=== PATIENT | female | born 1985 | race Caucasian/White ===

== ENCOUNTER 2017-02-09 22:52 | Emergency (ER) | payer SELFPAY ==
[2017-02-09 23:44] LABS: URINE BILIRUBIN NEGATIVE (NEGATIVE); URINE COLOR STRAW; URINE GLUCOSE (UA) NEGATIVE (NEGATIVE); URINE KETONE NEGATIVE (NEGATIVE)
[2017-02-09 23:45] LABS: URINE BLOOD NEGATIVE (NEGATIVE); URINE PROTEIN NEGATIVE (NEGATIVE); URINE UROBILINOGEN 0.2 E.U./dL (0.2 - 1.0)
[2017-02-09 23:49] LABS: URINE RBC 0-2 /hpf (0-5)
[2017-02-09 23:50] LABS: URINE BACTERIA MANY /hpf (NONE SEEN); URINE EPITHELIAL CELLS FEW /lpf (FEW)
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
[2017-02-10 00:45] LABS: HEMATOCRIT 30.7 % (35.0-45.0); HEMOGLOBIN 9.8 gm/dL (11.7-15.5); MEAN CORPUSCULAR HEMOGLOBIN 20.5 pg (27.0-31.0); MEAN CORPUSCULAR HGB CONC 31.9 pg (28.0-36.0); MEAN PLATELET VOLUME 10.7 fl; PLATELET COUNT 156 Th/cmm (150-400); RED BLOOD COUNT 4.77 Mil/cmm (3.80-5.10); RED CELL DISTRIBUTION WIDTH 15.9 % (11.5-20.0)
[2017-02-10 00:49] LABS: WHITE BLOOD COUNT 15.1 Th/cmm (4.8-10.8)
[2017-02-10 00:53] LABS: INR 0.88 (0.5-1.4)
[2017-02-10 01:03] LABS: ALKALINE PHOSPHATASE 78 U/L (34-104); ANION GAP 9.4 (7.0-16.0); BILIRUBIN,TOTAL 0.3 mg/dL (0.3-1.0); BUN - UREA NITROGEN 12 mg/dL (7-25); CALCIUM SERUM 9.3 mg/dL (8.6-10.3); CARBON DIOXIDE 23.5 mEq/L (21.0-31.0); CHLORIDE 106 mEq/L (98-107); CREATININE - SERUM 0.5 mg/dL (0.6-1.2); GLUCOSE 127 mg/dL (70-105); POTASSIUM SERUM 3.9 mEq/L (3.5-5.1); SGOT 10 U/L (13-39); SGPT/ALT 9 U/L (7-52); SODIUM SERUM 135 mEq/L (136-145)
[2017-02-10 01:10] LABS: MEAN CELL VOLUME 64.3 fl (81-100)
[2017-02-10 01:15] LABS: BAND NEUTROPHILE 3 % (0-10); EOSINOPHIL 1 % (0-5); NEUTROPHILS 80 % (40-80); PLATELET ESTIMATE ADEQUATE (NORMAL); TOTAL CELLS COUNTED 100
[2017-02-10 01:16] LABS: ANISOCYTOSIS 2+; MICROCYTOSIS 2+
--- NOTE | 2017-02-10 08:51 | Diagnostic Imaging Report ---
OB ultrasound (Limited) HISTORY: Pain, trauma The exam demonstrates a single intrauterine gestation with oblique presentation. motion and cardiac activity are noted (140 BPM). anatomic evaluation not performed at this time. Amniotic fluid volume is normal (HUMA equals 12.3). Placenta is in a posterior location. measurements not performed at this time. IMPRESSION: 1. Single intrauterine gestation as noted above 2. anatomic evaluation and measurements not performed at this time.
== END 2017-02-10 01:45 | disposition home or self-care (01) ==
LOC: ER 22:52
DX: O26.891 Other specified pregnancy related conditions, first trimester (principal); N39.0 Urinary tract infection, site not specified; I10 Essential (primary) hypertension; F17.200 Nicotine dependence, unspecified, uncomplicated; Z3A.01 Less than 8 weeks gestation of pregnancy
CPT/HCPCS: 36415-UA; 76815-TC; 80053-TC; 81001-TC; 83605; 85007-TC; 85027-TC; 85610-TC; J0696